=== PATIENT | male | born 1970 | race Caucasian/White ===

== ENCOUNTER 2017-01-10 18:02 | Emergency (ER) | payer OTHER ==
[~2017-01-10] VITALS: Ht 180.3 cm; Wt 80.0 kg
[2017-01-10 18:31] VITALS: BP 121/76; PULSE 98; RESP 16; TEMP 98; O2SAT 99
[2017-01-10] MEDS ORDERED: SODIUM CHLORIDE 0.9% FLUSH 10 ML FLUSH IV FLUSH PRN (19:15)
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
[2017-01-10 20:17] LABS: BASOPHIL # 0.1 TH/MM3 (0-0.2); BASOPHIL % 0.5 % (0.0-2.0); EOSINOPHIL # 0.1 TH/MM3 (0-0.4); EOSINOPHIL % 0.6 % (0.0-4.0); HEMATOCRIT 40.2 % (39.0-51.0); HEMO FLAGS DIFF FINAL; LYMPH % 7.6 % (9.0-44.0); LYMPHOCYTE # 1.1 TH/MM3 (1.0-4.8); MEAN CELL VOLUME 83.8 FL (80.0-100.0); MEAN CORPUSCULAR HEMOGLOBIN 28.5 PG (27.0-34.0); MONO % 7.2 % (0.0-8.0); NEUT % 84.1 % (16.0-70.0); PLATELET COUNT 234 TH/MM3 (150-450); RED CELL DISTRIBUTION WIDTH 13.3 % (11.6-17.2); WHITE BLOOD COUNT 14.2 TH/MM3 (4.0-11.0)
[2017-01-10 20:30] LABS: APTT (PATIENT) 26.9 SEC (24.3-30.1); INTERNATIONAL NORMALIZED RATIO 0.9 RATIO; PROTHROMBIN TIME - PATIENT 10.2 SEC (9.8-11.6)
[2017-01-10 20:41] LABS: BICARBONATE 24.9 MEQ/L (21.0-32.0); POTASSIUM 3.8 MEQ/L (3.5-5.1)
[2017-01-10] MEDS ORDERED: PERC5TAB12 PO (20:56)
[2017-01-10] MEDS ORDERED: IBUPROFEN 600 MG TAB PO ONE (21:00)
[2017-01-10 21:27] VITALS: BP 125/87; PULSE 86; RESP 18; O2SAT 100
== END 2017-01-10 21:28 | disposition home or self-care (01) ==
LOC: NEPD 18:02
DX: S92.311A Displaced fracture of first metatarsal bone, right foot, initial encounter for closed fracture (principal); E78.00 Pure hypercholesterolemia, unspecified; I10 Essential (primary) hypertension; V23.4XXA Motorcycle driver injured in collision with car, pick-up truck or van in traffic accident, initial encounter
CPT/HCPCS: 29515; 73590; 73610; 73630; 80048; 85025; 85610; 85730; 99284; E0113

== ENCOUNTER 2017-01-24 13:51 | Emergency (ER) | payer OTHER ==
[~2017-01-24] VITALS: Ht 175.3 cm; Wt 85.0 kg
[~2017-01-24 13:51] MED LIST: PERC5TAB12 PO
[2017-01-24 13:52] VITALS: BP 142/82; PULSE 105; RESP 20; TEMP 98.5; O2SAT 100
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
[2017-01-24 16:30] VITALS: BP 124/82; PULSE 78; RESP 18; O2SAT 99
[2017-01-24 17:47] LABS: AUTOMATED NEUTROPHIL # 8.2 TH/MM3 (1.8-7.7); BASOPHIL # 0.1 TH/MM3 (0-0.2); EOSINOPHIL # 0.2 TH/MM3 (0-0.4); EOSINOPHIL % 1.5 % (0.0-4.0); HEMATOCRIT 35.4 % (39.0-51.0); HEMO FLAGS DIFF FINAL; LYMPH % 14.5 % (9.0-44.0); LYMPHOCYTE # 1.6 TH/MM3 (1.0-4.8); MEAN CELL VOLUME 84.2 FL (80.0-100.0); MEAN CORPUSCULAR HEMOGLOBIN 29.5 PG (27.0-34.0); MONO % 7.5 % (0.0-8.0); NEUT % 75.5 % (16.0-70.0); PLATELET COUNT 371 TH/MM3 (150-450); RED BLOOD COUNT 4.21 MIL/MM3 (4.50-5.90); RED CELL DISTRIBUTION WIDTH 12.9 % (11.6-17.2); WHITE BLOOD COUNT 10.9 TH/MM3 (4.0-11.0)
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
[2017-01-24] MEDS ORDERED: CEPH-460 PO (19:34)
[2017-01-24 20:00] VITALS: BP 135/77
== END 2017-01-24 20:00 | disposition home or self-care (01) ==
LOC: NEPE 13:51
DX: R22.41 Localized swelling, mass and lump, right lower limb (principal); R60.0 Localized edema; S92.311D Displaced fracture of first metatarsal bone, right foot, subsequent encounter for fracture with routine healing; I10 Essential (primary) hypertension; E78.00 Pure hypercholesterolemia, unspecified; V29.9XXD Motorcycle rider (driver) (passenger) injured in unspecified traffic accident, subsequent encounter
CPT/HCPCS: 73610; 73620; 85025; 93971